=== PATIENT | male | born 1970 | race Caucasian/White ===

== ENCOUNTER 2016-04-15 13:41 | Emergency (ER) | payer OTHER ==
[~2016-04-15] VITALS: Ht 177.8 cm; Wt 86.3 kg
[~2016-04-15 13:41] MED LIST: CEFDINIR300 MG PO; METOPROLOL TART50 MG PO; MOTRIN600 MG PO; NAPROSYN SUS25 MG/ML PO; NOHOMEMEDS; NORCO 5/3251 TABLET PO; OMNICEF50 MG/1 ML PO; PRAVASTATIN SOD80 MG PO; ULTRACET1 TABLET PO; ZOFRAN ODT4 MG PO
[2016-04-15 16:44] VITALS: BP 131/92
[2016-04-15] MEDS ORDERED: MOTRIN800 MG PO (17:09)
[2016-04-15] MEDS ORDERED: IBUPROFEN100 MG/5 M PO (17:19)
== END 2016-04-15 17:17 | disposition home or self-care (01) ==
LOC: EXP 13:41 → EME 13:41 → EXP 17:17
DX: R10.32 Left lower quadrant pain (principal); T14.8 Other injury of unspecified body region; S86.819A Strain of other muscle(s) and tendon(s) at lower leg level, unspecified leg, initial encounter; W01.0XXA Fall on same level from slipping, tripping and stumbling without subsequent striking against object, initial encounter
CPT/HCPCS: 74000; 99281; 99283; J1885

== ENCOUNTER 2016-06-11 09:45 | Day surgery (SDC) | payer OTHER ==
[~2016-06-11] VITALS: Ht 177.8 cm; Wt 88.0 kg
[~2016-06-11 09:45] MED LIST changes: +IBUPROFEN100 MG/5 M PO; +MOTRIN800 MG PO
== END 2016-06-11 16:20 | disposition home or self-care (01) ==
LOC: CATH 09:45
DX: I25.10 Atherosclerotic heart disease of native coronary artery without angina pectoris (principal); R07.9 Chest pain, unspecified; R06.09 Other forms of dyspnea; R00.2 Palpitations; I10 Essential (primary) hypertension; E78.2 Mixed hyperlipidemia; F17.220 Nicotine dependence, chewing tobacco, uncomplicated
CPT/HCPCS: C1769; C1887; J1644; J2250; J3010

== ENCOUNTER 2016-07-22 15:13 | Observation (INO) | payer OTHER ==
[~2016-07-22] VITALS: Ht 177.8 cm; Wt 87.5 kg
[2016-07-22 15:57] LABS: HEMATOCRIT 43.8 % (38.0-50.0); MCH 32.1 PG (29.0-34.0); MCHC 34.9 G/DL (30.0-36.0); MCV 91.8 FL (86-99); MEAN PLAT.VOLUME 8.5 uM^3 (9.0-12.4); PLATELET COUNT 256 K/uL (156-360); RBC DIS.WIDTH-CV 12.3 % (11.8-14.6); RBC DIS.WIDTH-SD 40.8 % (39-53); RED BLOOD COUNT 4.77 M/uL (4.00-5.50); WHITE BLOOD COUNT 5.9 K/uL (4.1-10.2)
[2016-07-22 16:11] LABS: CHLORIDE 108 mEq/L (99-109); POTASSIUM 5.2 mEq/L (3.7-5.4); SODIUM 139 mEq/L (136-147)
[2016-07-22 16:13] LABS: GLUCOSE 84 mg/dL (70-99)
[2016-07-22 16:14] LABS: ANION GAP 11 MEQ/L (2-14)
[2016-07-22 16:17] LABS: GFR ESTIMATE (CALCULATED) > 59 mL/min/; TROP-I INTERPRETATION NEGATIVE; TROPONIN-I < 0.01 ng/mL (0.0-0.30)
[2016-07-22 16:18] LABS: UREA NITROGEN (BUN) 14 mg/dL (9-23)
[2016-07-22] MEDS ORDERED: ATORVASTATIN CA40 MG PO (17:06)
[2016-07-22] MEDS ORDERED: IMDUR30 MG PO (17:06)
[2016-07-22] MEDS ORDERED: ISOSORBIDE DINI10 MG PO (17:06)
[2016-07-22] MEDS ORDERED: LOPRESSOR50 MG PO (17:07)
[2016-07-22 18:50] LABS: TOTAL BILIRUBIN 0.5 mg/dL (0.0-1.0)
[2016-07-22 18:52] LABS: ALKALINE PHOSPHATASE 64 IU/L (3-129)
[2016-07-22 18:54] LABS: DIRECT BILIRUBIN 0.1 mg/dL (0.0-0.3)
[2016-07-22 18:55] LABS: LIPASE 20 U/L (1.0-51.0)
[2016-07-22 19:34] VITALS: BP 156/103
[2016-07-22 22:38] LABS: TROP-I INTERPRETATION NEGATIVE; TROPONIN-I < 0.01 ng/mL (0.0-0.30)
[2016-07-23 00:54] VITALS: BP 127/81
[2016-07-23 04:42] VITALS: BP 121/81
[2016-07-23 04:55] LABS: TROP-I INTERPRETATION NEGATIVE; TROPONIN-I < 0.01 ng/mL (0.0-0.30)
[2016-07-23 07:37] VITALS: BP 103/67
[2016-07-23] MEDS ORDERED: ISOSORBIDE DINI10 MG PO (09:29)
[2016-07-23] MEDS ORDERED: ASPIR-LOW81 MG PO (09:29)
[2016-07-23] MEDS ORDERED: ATORVASTATIN CA40 MG PO (09:29)
[2016-07-23] MEDS ORDERED: LOPRESSOR50 MG PO (09:29)
== END 2016-07-23 10:43 | disposition home or self-care (01) ==
LOC: EME 15:13 → EDOF 18:15 → 5WEST 18:15
PROVIDERS: Hospitalist
DX: R07.89 Other chest pain (principal); I25.10 Atherosclerotic heart disease of native coronary artery without angina pectoris; R55 Syncope and collapse; R11.0 Nausea; G89.29 Other chronic pain; F17.220 Nicotine dependence, chewing tobacco, uncomplicated; E78.5 Hyperlipidemia, unspecified; I10 Essential (primary) hypertension
CPT/HCPCS: 71020; 80048; 80076; 83690; 84484; 85027; 93005; 99281; 99284; G0378

== ENCOUNTER → 2017-04-06 | Outpatient (CLI) | payer OTHER ==
[~2017-04-06] MED LIST changes: +ASPIR-LOW81 MG PO; +ATORVASTATIN CA40 MG PO; +IMDUR30 MG PO; +ISOSORBIDE DINI10 MG PO; +LOPRESSOR50 MG PO
== END | disposition home or self-care (01) ==
LOC: CDC 12:04
DX: Z01.810 Encounter for preprocedural cardiovascular examination (principal); K43.9 Ventral hernia without obstruction or gangrene
CPT/HCPCS: 93000

== ENCOUNTER 2017-04-29 06:19 | Day surgery (SDC) | payer OTHER ==
[~2017-04-29] VITALS: Ht 177.8 cm; Wt 86.2 kg
[~2017-04-29 06:19] MED LIST changes: +FLONASE ALLERG9.9 ML BOTH NARES; +LIPITOR40 MG PO; +NITROSTAT0.4 MG SL
[2017-04-29 07:48] VITALS: BP 156/94
[2017-04-29] MEDS ORDERED: ACETAMINOPHEN-120 ML PO (10:06)
[2017-04-29 11:09] VITALS: BP 135/90
[2017-04-29 12:05] VITALS: BP 124/85
[2017-04-29 14:05] VITALS: BP 125/83
[2017-04-29 15:33] VITALS: BP 150/94
== END 2017-04-29 15:42 | disposition home or self-care (01) ==
LOC: SDC
PROC: 0WQF4ZZ Repair Abdominal Wall, Percutaneous Endoscopic Approach (ICD-10-PCS; principal; 2017-04-29)
DX: T85.628A Displacement of other specified internal prosthetic devices, implants and grafts, initial encounter (principal); R10.33 Periumbilical pain; Y83.2 Surgical operation with anastomosis, bypass or graft as the cause of abnormal reaction of the patient, or of later complication, without mention of misadventure at the time of the procedure; I10 Essential (primary) hypertension; I69.354 Hemiplegia and hemiparesis following cerebral infarction affecting left non-dominant side; Z88.0 Allergy status to penicillin; Z79.82 Long term (current) use of aspirin
CPT/HCPCS: J0131; J0330; J0690; J1100; J1170; J1885; J2250; J2405; J2710; J3010